=== PATIENT | female | born 1960 | race Caucasian/White ===

== ENCOUNTER → 2017-03-22 | Outpatient (CLI) | payer OTHER ==
[2017-03-22 10:29] LABS: Basophils # (A) 0.1 k/uL (0-0.2); Basophils % (A) 1 %; CH 26.3; CHCM 34.4; Eosinophils # (A) 0.5 k/uL (0-0.7); Eosinophils % (A) 5 %; HCT 36.3 % (34.0-46.0); HDW 2.69; HGB 12.5 gm/dL (11.4-16.0); Luc # (Auto) 0.19; Luc % (Auto) 2; Lymphocytes # (A) 1.8 k/uL (1.0-4.8); Lymphocytes % (A) 18 %; MCH 26.5 pg (25.0-35.0); MCHC 34.5 g/dL (31.0-37.0); MCV 76.8 fL (80.0-100.0); Mean Platelet Volume 6.4; Monocytes # (A) 0.3 k/uL (0-1.0); Monocytes % (A) 3 %; Neutrophils # (A) 7.3 k/uL (1.3-7.7); Neutrophils % (A) 72 %; RBC 4.73 m/uL (3.80-5.40); RDW 13.7 % (11.5-15.5); WBC 10.1 k/uL (3.8-10.6)
[2017-03-22 10:42] LABS: ALT 32 U/L (9-52); AST 19 U/L (14-36); Alkaline Phosphatase 49 U/L (38-126); Anion Gap 11 mmol/L; Blood Urea Nitrogen 16 mg/dL (7-17); Calcium 9.5 mg/dL (8.4-10.2); Carbon Dioxide 23 mmol/L (22-30); Chloride 106 mmol/L (98-107); Cholesterol 150 mg/dL (<200); Glucose 78 mg/dL (74-99); HDL Cholesterol 49 mg/dL (40-60); Non-African American GFR(MDRD) >60 (>60 ml/min/1.73 sqM); Potassium 4.5 mmol/L (3.5-5.1); Sodium 140 mmol/L (137-145); Total Bilirubin 0.3 mg/dL (0.2-1.3); Total Protein 6.7 g/dL (6.3-8.2); Triglycerides 132 mg/dL (<150)
--- NOTE | 2017-03-22 11:59 | ECHOF ---
Referral Reason:R01.1 Cardiac Murmur MEASUREMENTS -------- HEIGHT: 160.0 cm WEIGHT: 73.9 kg BP: IVSd: 0.9 cm (0.6 - 1.1) LVIDd: 3.4 cm (3.9 - 5.3) LVPWd: 1.1 cm (0.6 - 1.1) IVSs: 1.5 cm LVIDs: 1.9 cm LVPWs: 1.2 cm LA Diam: 3.2 cm (2.7 - 3.8) LAESV Index (A-L): 20.67 ml/m Ao Diam: 2.6 cm (2.0 - 3.7) AV Cusp: 1.7 cm (1.5 - 2.6) LA Diam: 3.9 cm (2.7 - 3.8) MV EXCURSION: 20.651 mm (> 18.000) MV EF SLOPE: 85 mm/s (70 - 150) EPSS: 0.4 cm MV E Jay: 0.83 m/s MV DecT: 258 ms MV A Jay: 0.97 m/s MV E/A Ratio: 0.86 RAP: 5.00 mmHg RVSP: 27.35 mmHg FINDINGS -------- Sinus rhythm. This was a technically good study. The left ventricular size is normal. Left ventricular wall thickness is normal. Overall left ventricular systolic function is normal with, an EF between 55 - 60 %. The right ventricle is normal in size. Normal LA size by volume 22+/-6 ml/m2. The right atrial size is normal. The aortic valve is trileaflet, and appears structurally normal. No aortic stenosis or regurgitation. The mitral valve is normal. Mild mitral regurgitation is present. Mild tricuspid regurgitation present. There is no evidence of pulmonary hypertension. The right ventricular systolic pressure, as measured by Doppler, is 27.35mmHg. There is no pulmonic regurgitation present. The aortic root size is normal. There is no pericardial effusion. CONCLUSIONS -------- 1. This was a technically good study. 2. There is no pericardial effusion. 3. Overall left ventricular systolic function is normal with, an EF between 55 - 60 %. 4. Normal LA size by volume 22+/-6 ml/m2. 5. The aortic valve is trileaflet, and appears structurally normal. No aortic stenosis or regurgitation. 6. Mild mitral regurgitation is present. 7. Mild tricuspid regurgitation present. 8. There is no evidence of pulmonary hypertension. 9. There is no pulmonic regurgitation present. 10. The aortic root size is normal. [employer] GOLF PROFESSIONAL: Lizbet Gil RDCS
--- NOTE | 2017-03-23 13:18 | MM ---
Reason for exam: screening (asymptomatic). Last mammogram was performed 1 year and 6 months ago. History: Benign excisional biopsy of the right breast, 1979. Taking estrogen for 1 year. Physical Findings: A clinical breast exam by your physician is recommended on an annual basis and results should be correlated with mammographic findings. MG Screening Mammo w CAD Bilateral CC and MLO view(s) were taken. Prior study comparison: October 06, 2015, bilateral MG screening mammo w CAD. October 03, 2014, bilateral MG screening mammo w CAD. December 04, 2012, bilateral digital screening mammo w/CAD. The breast tissue is heterogeneously dense. This may lower the sensitivity of mammography. No significant changes when compared with prior studies. ASSESSMENT: Negative, BI-RAD 1 RECOMMENDATION: Routine screening mammogram of both breasts in 1 year.
== END | disposition home or self-care (01) ==
LOC: RADMAMWWP 09:54
PROVIDERS: ATTEND Family Medicine
DX: Z12.31 Encounter for screening mammogram for malignant neoplasm of breast (principal); I34.0 Nonrheumatic mitral (valve) insufficiency; R01.1 Cardiac murmur, unspecified; E03.9 Hypothyroidism, unspecified; Z01.419 Encounter for gynecological examination (general) (routine) without abnormal findings; Z13.0 Encounter for screening for diseases of the blood and blood-forming organs and certain disorders involving the immune mechanism; Z13.1 Encounter for screening for diabetes mellitus; Z13.220 Encounter for screening for lipoid disorders
CPT/HCPCS: 93306; 80061; 80053; 84443; 85025; G0202

== ENCOUNTER → 2017-11-08 | Outpatient (CLI) | payer OTHER ==
--- NOTE | 2017-11-08 13:41 | MR ---
EXAMINATION TYPE: MR knee LT wo con DATE OF EXAM: 11/08/2017 COMPARISON: NONE HISTORY: Left knee pain TECHNIQUE: Multiplanar, multisequence imaging of the left knee is performed without IV contrast. FINDINGS: MEDIAL MENISCUS: Very minimal increased signals within the posterior horn medial meniscus along its s uperior aspect. Communication with the articular surface is not identified. Some minimal internal liset angement may be present. LATERAL MENISCUS: There is some increased signal within the anterior portion of the posterior horn la teral meniscus. No communication with the articular surface is evident. Some internal derangement may be present. CRUCIATE LIGAMENTS: The anterior and posterior cruciate ligaments are intact and unremarkable. COLLATERAL LIGAMENTS: The medial collateral ligament and lateral collateral ligament complex are inta ct and unremarkable. EXTENSOR MECHANISM: Visualized quadriceps and patellar tendons are intact. EFFUSION: No significant suprapatellar joint effusion. There is a loculated fluid collection lateral to the lateral knee joint space. POPLITEAL CYST: No popliteal/sanders cyst. TRICOMPARTMENT SPACES: Preserved CARTILAGE: Preserved. BONE MARROW SIGNAL: No focal abnormal marrow signal is appreciated. OTHER: No additional significant abnormality is appreciated. IMPRESSION: 1. Fluid collection along lateral distal metaphyseal femur could be some bursal fluid or loculated j oint effusion. 2. Minimal internal derangement posterior horns medial and lateral meniscus, greater on the lateral s gab. No communication with the articular surface is evident. 3. Remaining portions of the left knee appear unremarkable.
== END | disposition home or self-care (01) ==
LOC: RADMRIMAIN 09:08
PROVIDERS: ATTEND Family Medicine
DX: M23.352 Other meniscus derangements, posterior horn of lateral meniscus, left knee (principal); M23.322 Other meniscus derangements, posterior horn of medial meniscus, left knee

== ENCOUNTER → 2018-01-06 | Outpatient (CLI) | payer OTHER ==
--- NOTE | 2018-01-06 10:17 | US ---
EXAMINATION TYPE: US transvaginal DATE OF EXAM: 01/06/2018 COMPARISON: NONE CLINICAL HISTORY: N84.0 ENDOMETRIAL POLYP, N83.291 OVARIAN CYST. postmenopausal spotting TECHNIQUE: Transvaginal (TV). EXAM MEASUREMENTS: Uterus: 8.4 x 6.4 x 5.1cm cm Endometrial Stripe: 0.3 cm Right Ovary: 2.8 x 1.4 x 1.4 cm Left Ovary: 2.1 x 1.5 x 2.0 cm 1. Uterus: Anteverted somewhat heterogeneous echopattern, few Nabothian cysts 2. Endometrium: wnl 3. Right Ovary: wnl 4. Left Ovary: wnl 5. Bilateral Adnexa: wnl 6. Posterior cul-de-sac: no free fluid seen IMPRESSION: No suspicious thickening of endometrium seen.
== END | disposition home or self-care (01) ==
LOC: RADUSWWP 09:39
PROVIDERS: ATTEND Internal Medicine Endocrinology, Diabetes & Metabolism
DX: N84.0 Polyp of corpus uteri (principal); N83.291 Other ovarian cyst, right side
CPT/HCPCS: 76830

== ENCOUNTER → 2018-03-21 | Outpatient (CLI) | payer OTHER ==
[2018-03-14 10:13] VITALS: BMI 29.2
[2018-03-21 14:45] VITALS: BP 140/70; PULSE 68; RESP 16
--- NOTE | 2018-03-21 14:58 | P.PAINCN ---
History of Present Illness - Reason for Consult Consult date: 03/21/18 - History of Present Illness This is 58 years old female with a chronic history of severe low back pain with radiation to the left buttock area, she denies any initiating event she reported that the pain started 3 years ago, and increase in intensity over time she tried physical therapy and chiropractics without any benefit, and she tried NSAIDs without any benefit, she continued to have severe left-sided low back pain, the pain increases with any activity, and interfering with her quality of life, she denies any change in the bowel movement or urination, she denies any motor or sensory deficit, and there is no fever or night sweats Past Medical History Past Medical History: Thyroid Disorder Additional Past Medical History / Comment(s): MINOR ARRYTHMIA History of Any Multi-Drug Resistant Organisms: None Reported Past Surgical History: Orthopedic Surgery Additional Past Surgical History / Comment(s): COLONOSCOPY. LT KNEE SCOPE X 2 Past Anesthesia/Blood Transfusion Reactions: No Reported Reaction Past Psychological History: No Psychological Hx Reported Smoking Status: Never smoker Past Alcohol Use History: Occasional Past Drug Use History: None Reported - Past Family History Father Family Medical History: Deep Vein Thrombosis (DVT) Medications and Allergies Home Medications Medication Instructions Recorded Confirmed Type Levothyroxine Sodium [Synthroid] 50 mcg PO DAILY 05/10/14 03/21/18 History Spironolactone 100 mg PO DAILY 02/14/18 03/21/18 History Aspirin 325 mg PO DAILY 03/14/18 03/21/18 History Allergies Allergy/AdvReac Type Severity Reaction Status Date / Time No Known Allergies Allergy Verified 03/21/18 14:38 Physical Exam Vitals: Vital Signs Pulse Resp BP Pulse Ox 03/21/18 14:43 68 16 140/70 98 Physical Examinations : 1-Constitutiona : Cooperative , not in acute distress . 2-HEENT : nech ; supple , no Lymphadenopathy , normal thyroid size . eyes : no ptosis , no icterus , no photophobia . ENT : normal of hearing , normal oropharynx , no Thrush . 3- Respiratory : Chest clear to auscultations Bilaterally , no wheezing , no Rhonchi . 4- Cardiovascular : regular rate and rhythem , S1 , S2 , no S3 , no S4. 5- Gastrointestinal : abdomen soft no tenderness , bowel sounds , no organomegally . 6- Genitourinary : Defferred . 7- neurologic : Cranial nerve II to XII intact , no focal neurological deffecit . 8-psychatric : alert , oriented X 3 , appropriate affect , intact judgment and insight . 9-Lymphatic : no Lymphadenopathy . 10- musculoskeltal : , Lumber spine = normal moter stegnth lower extremities ,thigh and legs .5/5 deep tendon reflexes : normal Knee Jerk , normal ankle Jerk . lumber facet Loading Test positive on the left side and negative on the right side strait leg raising test negative bilaterally Fabere test negative bilaterally Results Comments: MRI of the lumbar spine done 01/03/2018 showed patient had L3 4 right-sided foraminal disc protrusion, and there is a right-sided Facet joint hypertrophy at L5-S1 Assessment and Plan Plan: Assessment and plan= chronic severe low back pain mostly secondary to lumbar spondylosis with lumbar facet arthropathy, The MRI showed patient had right-sided foraminal disc protrusion at L3 4 and L4-L5 , but this MRI finding does not match her clinical symptoms, she reported that she never had pain on the right side, and she report: Her pain is on the low back area on the left side For this reason most of the pain is coming from the facetogenic component, he shouldn't will be scheduled to have diagnostic medial branch block on the left side , at L3-4 /L4 5/ L5-S1 x2 benefits positive then we will do the radiofrequency ablation Time with Patient: Greater than 30 PQRS Measure Charge Sheet Measure #130: Documentation of Current Meds in Medical Chart: Patient's medications documented in chart Measure #226: Tobacco Use: Screen & Cessation Intervention: Pt not a tobacco user Measure #111: Pneumonia Vaccination: Pneumococcal vaccine NOT administered or previously given Measure #47: Advance Care Plan: Advance care planning discussed & documented, plan or surrogate given Measure #412: Opioid Treatment Agreement: No documentation of signed opioid treatment agreement Measure #408: Opioid Therapy Follow-up Evaluation: Patient had NO f/u eval minimum every 3 months during opioid therapy Measure #317: Preventitive Care & Scrn High Bld Press & F/U: Normal blood pressure, f/u not required Measure #128: Body Mass Index (BMI) Screening & Follow-up: BMI documented ABOVE normal parameters - f/u documented Measure #131: Pain Assessment & Follow-up: Pain positive & plan documented, Follow-up scheduled Measure #431: Unhealthy Alcohol Use Preventative Care & Scrn: Patient not identified as an unhealthy alcohol user PQRS Narrative: Smoking Status Never smoker Do You Want the Pneumonia No Vaccine AT THIS TIME? Blood Pressure 140/70 Pain Intensity [Left Buttock] 0 Scale Used Numeric (1 - 10) Hx Alcohol Use (MH) No Home Medications: Ambulatory Orders Levothyroxine Sodium [Synthroid] 50 mcg PO DAILY 05/10/14 Spironolactone 100 mg PO DAILY 02/14/18 Aspirin 325 mg PO DAILY 03/14/18
== END | disposition home or self-care (01) ==
LOC: PNWHC3 13:28
PROVIDERS: ATTEND Specialist
DX: G89.29 Other chronic pain (principal); M51.26 Other intervertebral disc displacement, lumbar region; M47.816 Spondylosis without myelopathy or radiculopathy, lumbar region; M46.86 Other specified inflammatory spondylopathies, lumbar region; Z98.890 Other specified postprocedural states; Z79.1 Long term (current) use of non-steroidal anti-inflammatories (NSAID); E07.9 Disorder of thyroid, unspecified; Z79.82 Long term (current) use of aspirin; Z79.899 Other long term (current) drug therapy
CPT/HCPCS: 99201

== ENCOUNTER → 2018-04-14 | Outpatient (CLI) | payer OTHER ==
--- NOTE | 2018-04-17 08:30 | MM ---
Reason for exam: screening (asymptomatic). Last mammogram was performed 1 year and 1 month ago. History: Patient is postmenopausal. Benign excisional biopsy of the right breast, 1979. Taking estrogen for 1 year. Physical Findings: A clinical breast exam by your physician is recommended on an annual basis and results should be correlated with mammographic findings. MG 3D Screening Mammo W/Cad Bilateral CC and MLO view(s) were taken. Technologist: Renetta Nagel RT (R)(M) Prior study comparison: March 22, 2017, bilateral MG screening mammo w CAD. October 06, 2015, bilateral MG screening mammo w CAD. The breast tissue is extremely dense which could obscure a lesion on mammography. Benign appearing bilateral calcifications. No suspicious abnormality. No significant changes when compared with prior studies. ASSESSMENT: Benign, BI-RAD 2 RECOMMENDATION: Routine screening mammogram of both breasts in 1 year.
== END | disposition home or self-care (01) ==
LOC: RADMAMWWP 09:32
PROVIDERS: ATTEND Family Medicine
DX: Z12.31 Encounter for screening mammogram for malignant neoplasm of breast (principal)
CPT/HCPCS: 77063; 77067

== ENCOUNTER 2018-04-25 09:01 | Day surgery (SDC) | payer OTHER ==
[2018-04-03 14:22] VITALS: BMI 29.2
[~2018-04-25 09:01] MED LIST: LACTATED RINGERS 1,000 ML IV SCH
[2018-04-25 09:46] VITALS: RESP 16; TEMP 97.9
[2018-04-25] MEDS ORDERED: LIDOCAINE 1% 20 ML VIAL (10MG/ML) FOR IV START INTRADERMA ONE (09:51)
--- NOTE | 2018-04-25 10:41 | P.PCN ---
Date of Procedure: 04/25/18 Procedure(s) Performed: PREOPERATIVE DIAGNOSIS : 1- Lumbar spondylosis with Facet Arthropathy without myelopathy . 2- Lumber degenerative disc disease POSTOPERATIVE DIAGNOSIS: 1- Lumbar spondylosis with Facet Arthropathy without myelopathy . 2- Lumber degenerative disc disease PROCEDURE: Diagnostic Left L3 -4 , L4 -5 , and L5-S1 medial branch block under fluoroscopy ANESTHESIA: Local with 1% lidocaine 6 ml , moderate sedation with intravenous Versed 2 mg and Fentanyl 50 mcg. EBL: Minimal COMPLICATION: None. IV FLUIDS: 100 mL of normal saline. PROCEDURE INDICATION: Chronic low back pain secondary to Facet arthropathy unresponsive to conservative treatment. PROCEDURE DESCRIPTION: the patient was seen and identified in the preop holding area , risks and benefits and possible complications of the procedure and alternative were discussed with the patient, and the patient agreed to proceed with the procedure and signed the consent IV was started and vital signs monitored during the procedure and fluoroscopy was used to maximize the benefit and accuracy of the needle placement, and sedation was given to decrease patient anxiety, patient was taken to the procedure room and placed in prone position vital signs monitored in the back prepped with chlorhexidine X3 then under strict sterile technique using a right oblique fluoroscopy ,the junction of the transverse process and the superior articulating process of the Left L3- 4 , L4- 5, and L5-S1 vertebra which corresponding to the fluoroscopy image of the eye of the Donald dog on the block side for the medial branches and subsequently , after local infiltration of skin and subcu tissuies with lidocaine 1% one mL at each level ,then 22- gauge Quincke-type needles , 3 needle was used , each one of them placed at the junction of the base of the transverse process and the superior articular process at the appropriate level, and the needle was advanced until the periosteum contacted, needle placement confirmed with AP oblique and lateral view and after appropriate needle placement confirmed, and after negative aspiration for heme and CSF and there was no paresthesia 1-1/2 mL of Marcaine 0.5% mixed with 40 mg Kenalog , then half mL injected at each level after negative aspiration the needle subsequently removed. At the end of the procedure and the needles removed and a bandage applied after the skin was cleaned the cleaning solution patient taken to recovery room in stable condition and monitors in the recovery room for 20-30 minutes and discharged home in stable condition after discharge criteria met and patient will follow up with the pain clinic in 2-4 weeks
[2018-04-25] MEDS ORDERED: IV FLUID CONTINUATION 1,000 ML IV ONE (10:46)
--- NOTE | 2018-04-25 10:51 | FL ---
EXAMINATION TYPE: FL guided pain mgmt statistic DATE OF EXAM: 04/25/2018 HISTORY: Flouroscopy time 5 seconds of fluoroscopy provided. IMPRESSION: 1. Fluoroscopy time.
[2018-04-25 11:06] VITALS: BP 115/78; PULSE 72
== END 2018-04-25 11:16 | disposition home or self-care (01) ==
LOC: ORPAIN 09:01
PROVIDERS: ATTEND Specialist
DX: G89.29 Other chronic pain (principal); M47.816 Spondylosis without myelopathy or radiculopathy, lumbar region; M51.36 Other intervertebral disc degeneration, lumbar region
CPT/HCPCS: 64493; 64494; 64495; J2250; J3301; J3010; 99152

== ENCOUNTER 2018-05-11 08:51 | Day surgery (SDC) | payer OTHER ==
[2018-05-09 10:15] VITALS: BMI 29.2
[2018-05-11 09:10] VITALS: RESP 16; TEMP 97.6
[2018-05-11] MEDS ORDERED: LIDOCAINE 1% 20 ML VIAL (10MG/ML) FOR IV START INTRADERMA ONE (09:10)
--- NOTE | 2018-05-11 10:15 | P.PCN ---
Date of Procedure: 05/11/18 Procedure(s) Performed: PREOPERATIVE DIAGNOSIS : 1- Lumbar spondylosis with Facet Arthropathy without myelopathy . POSTOPERATIVE DIAGNOSIS: 1- Lumbar spondylosis with Facet Arthropathy without myelopathy . PROCEDURE: Diagnostic Left L3 -4 , L4 -5 , and L5-S1 medial branch block under fluoroscopy ( # 2 ) ANESTHESIA: Local with Ropivacain 0.5 % 6 ml , moderate sedation with intravenous Versed 2 mg and Fentanyl 50 mcg. EBL: Minimal COMPLICATION: None. IV FLUIDS: 100 mL of normal saline. PROCEDURE INDICATION: Chronic low back pain secondary to Facet arthropathy unresponsive to conservative treatment. PROCEDURE DESCRIPTION: the patient was seen and identified in the preop holding area , risks and benefits and possible complications of the procedure and alternative were discussed with the patient, and the patient agreed to proceed with the procedure and signed the consent IV was started and vital signs monitored during the procedure and fluoroscopy was used to maximize the benefit and accuracy of the needle placement, and sedation was given to decrease patient anxiety, patient was taken to the procedure room and placed in prone position vital signs monitored in the back prepped with chlorhexidine X3 then under strict sterile technique using a Left oblique fluoroscopy ,the junction of the transverse process and the superior articulating process of the Left L3- 4 , L4- 5, and L5-S1 vertebra which corresponding to the fluoroscopy image of the eye of the Donald dog on the block side for the medial branches and subsequently , after local infiltration of skin and subcu tissuies with Ropivacaine 0.5 % , one mL at each level , then 22-gauge Quincke-type needles , 3 needle was used , each one of them placed at the junction of the base of the transverse process and the superior articular process at the appropriate level, and the needle was advanced until the periosteum contacted, needle placement confirmed with AP oblique and lateral view and after appropriate needle placement confirmed, and after negative aspiration for heme and CSF and there was no paresthesia 1-1/2 mL of Ropivacaine 0.5% mixed with 40 mg Kenalog , then half mL injected at each level after negative aspiration the needle subsequently removed intact . At the end of the procedure and the needles removed and a bandage applied after the skin was cleaned the cleaning solution patient taken to recovery room in stable condition and monitors in the recovery room for 20-30 minutes and discharged home in stable condition after discharge criteria met and patient will follow up with the pain clinic in 2-4 weeks
[2018-05-11] MEDS ORDERED: IV FLUID CONTINUATION 1,000 ML IV ONE ×2 (10:23)
--- NOTE | 2018-05-11 10:56 | FL ---
EXAMINATION TYPE: FL guided pain mgmt statistic DATE OF EXAM: 05/11/2018 HISTORY: Flouroscopy time 3 seconds of fluoroscopy provided. IMPRESSION: 1. Fluoroscopy time.
[2018-05-11 10:59] VITALS: BP 117/76; PULSE 70
== END 2018-05-11 11:04 | disposition home or self-care (01) ==
LOC: ORPAIN 08:51
PROVIDERS: ATTEND Specialist
DX: M47.816 Spondylosis without myelopathy or radiculopathy, lumbar region (principal); G89.29 Other chronic pain
CPT/HCPCS: 64493; 64494; 64495; J2250; J3301; J3010; 99152

== ENCOUNTER → 2018-07-20 | Outpatient (CLI) | payer OTHER ==
[2018-07-20 14:46] VITALS: BP 124/80; PULSE 71; RESP 16
--- NOTE | 2018-07-20 14:56 | P.PN ---
Progress Note - Text Progress Note Date: 07/20/18 This is a follow visit for this 58 years old female with a chronic history of severe low back pain on the left side, she was diagnosed with lumbar spondylosis with lumbar facet arthropathy without myelopathy , April 2018 we did diagnostic medial branch block left side L3-4 /L4-5/L5-S1 , she reported that her pain improved significantly after the block currently her pain level 0- 1/10 , she denies any motor or sensory deficit she denies any fever or night sweats and she denies any change in bowel movement or urination, and in the view the patient had no pain most of the time since we did today lasted medial branch block , patient will continue to use [id number] NSAID if needed , and she will follow up with the pain clinic when necessary , in the future sure if she had pain then she would be good candidate for radiofrequency ablation of the medial branch lumbar area left side at L3-4/L4-L5/L5-S1
== END | disposition home or self-care (01) ==
LOC: PNWHC3 14:06
PROVIDERS: ATTEND Specialist
DX: G89.29 Other chronic pain (principal); M47.816 Spondylosis without myelopathy or radiculopathy, lumbar region; M46.96 Unspecified inflammatory spondylopathy, lumbar region
CPT/HCPCS: 99211

== ENCOUNTER → 2020-03-11 | Outpatient (CLI) | payer BC ==
--- NOTE | 2020-03-12 11:03 | MM ---
Reason for exam: screening (asymptomatic). Last mammogram was performed 1 year and 11 months ago. History: Patient is postmenopausal. Benign excisional biopsy of the right breast, 1979. Taking hormonal contraceptives. Taking estrogen for 1 year. Physical Findings: A clinical breast exam by your physician is recommended on an annual basis and results should be correlated with mammographic findings. MG 3D Screening Mammo W/Cad Bilateral CC and MLO view(s) were taken. Prior study comparison: April 14, 2018, bilateral MG 3d screening mammo w/cad. March 22, 2017, bilateral MG screening mammo w CAD. The breast tissue is heterogeneously dense. This may lower the sensitivity of mammography. No significant changes when compared with prior studies. ASSESSMENT: Benign, BI-RAD 2 RECOMMENDATION: Routine screening mammogram of both breasts in 1 year.
== END | disposition home or self-care (01) ==
LOC: RADMAMWWP 14:44
PROVIDERS: ATTEND Family Medicine
DX: Z12.31 Encounter for screening mammogram for malignant neoplasm of breast (principal)
CPT/HCPCS: 77063; 77067

== ENCOUNTER 2020-03-27 09:25 | Day surgery (SDC) | payer BC ==
[2020-03-25 15:11] VITALS: BMI 29.2
[2020-03-27 09:43] VITALS: TEMP 98.4
[2020-03-27] MEDS ORDERED: LIDOCAINE 1% (10MG/ML) FOR IV START INTRADERMA ONE (09:44)
[2020-03-27] MEDS ORDERED: LACTATED RINGERS 1,000 ML IV ONE (09:44)
[2020-03-27] MEDS ORDERED: PROPOFOL 10 MG/ML 20 ML VIAL IV ONE (10:53)
--- NOTE | 2020-03-27 10:54 | P.GSHP ---
History of Present Illness H&P Date: 03/27/20 Chief Complaint: Screening colonoscopy This a 6-year-old female who presents today for screening colonoscopy. Patient denies any significant GI complaints. Past Medical History Past Medical History: Thyroid Disorder Additional Past Medical History / Comment(s): HEART MURMUR History of Any Multi-Drug Resistant Organisms: None Reported Past Surgical History: Orthopedic Surgery Additional Past Surgical History / Comment(s): COLONOSCOPY. LT KNEE SCOPE X 2 Past Anesthesia/Blood Transfusion Reactions: No Reported Reaction Past Psychological History: No Psychological Hx Reported Smoking Status: Never smoker Past Alcohol Use History: Occasional Past Drug Use History: None Reported - Past Family History Father Family Medical History: Deep Vein Thrombosis (DVT) Mother Family Medical History: Cancer Additional Family Medical History / Comment(s): SKIN CANCER Medications and Allergies Home Medications Medication Instructions Recorded Confirmed Type Levothyroxine Sodium [Synthroid] 50 mcg PO QAM 05/10/14 03/25/20 History Aspirin 325 mg PO HS 03/14/18 03/25/20 History Biotin (Unknown Dose) 1 tab PO DAILY 03/25/20 History Estrogens, Conjugated [Premarin] 1.25 mg PO DAILY 03/25/20 03/25/20 History Spironolactone [Aldactone] 100 mg PO BID 03/25/20 03/25/20 History Allergies Allergy/AdvReac Type Severity Reaction Status Date / Time No Known Allergies Allergy Verified 03/25/20 14:52 Surgical - Exam Vital Signs Temp Pulse Resp BP Pulse Ox 98.4 F 82 18 166/89 97 03/27/20 09:42 03/27/20 09:42 03/27/20 09:42 03/27/20 09:42 03/27/20 09:42 - General well developed, well nourished, no distress - Eyes PERRL - ENT normal pinna - Neck no masses - Respiratory normal expansion - Cardiovascular Rhythm: regular - Abdomen Abdomen: soft, non tender Assessment and Plan Assessment: We'll perform screening colonoscopy
--- NOTE | 2020-03-27 11:12 | P.OP ---
Date of Procedure: 03/27/20 Preoperative Diagnosis: Screening colonoscopy Postoperative Diagnosis: Normal colon Procedure(s) Performed: Colonoscopy Anesthesia: MAC Surgeon: Wil Tovar Pathology: none sent Condition: stable Disposition: PACU Description of Procedure: Nor PROCEDURE: The patient was placed on the endoscopy table in the lateral position. Digital rectal examination was performed which revealed no abnormalities. s. Flexible colonoscope was then placed in the patient's anus and passed throughout the entire colon. The ileocecal valve was visualized. The cecum, ascending, transverse, descending and sigmoid colon were normal. The rectum was normal as well. There were no masses, polyps or diverticula noted in the entire colon. SUMMARY OF FINDINGS: Normal colonoscopy.
[2020-03-27 11:23] VITALS: RESP 16
[2020-03-27 11:36] VITALS: BP 108/64; PULSE 71
== END 2020-03-27 11:38 | disposition home or self-care (01) ==
LOC: ORWHC2ENDO 09:25
PROVIDERS: ATTEND Surgery
DX: Z12.11 Encounter for screening for malignant neoplasm of colon (principal); E07.9 Disorder of thyroid, unspecified; Z79.82 Long term (current) use of aspirin; Z79.890 Hormone replacement therapy; Z79.899 Other long term (current) drug therapy; Z98.890 Other specified postprocedural states; Z82.49 Family history of ischemic heart disease and other diseases of the circulatory system; Z80.8 Family history of malignant neoplasm of other organs or systems
CPT/HCPCS: J2704; G0121

== ENCOUNTER → 2021-03-05 | Outpatient (CLI) | payer OTHER ==
--- NOTE | 2021-03-06 08:42 | EST ---
- Stress Test Note Stress Test Results/Findings: Exam Performed: stress echo exercise Exam Date: 03/05/21 Reason for Exam: Murmur and Palpitations Height: 5 ft 3 in Weight: 70.307 kg Protocol: Keanu Stage: 4 Duration of Exercise: 10:00 Resting Heart Rate: 71 Resting Blood Pressure: 148/91 Maximum Achieved Heart Rate: 160 Maximum Achieved Blood Pressure: 200/68 85% PMHR: 135 100% PMHR: 159 METS: 11.5 Technologist Comment: Stress Test Results/Findings: Patient underwent exercise stress echo with a Keanu protocol treadmill stress test. Patient exercised into Stage 4 for a total of 10 minutes reaching a total of 11.5 METS. Patient's maximum heart rate was 160 which represented 100 % age- predicted maximum heart rate. Stress EKG portion: At baseline patient's EKG showed normal sinus rhythm, normal axis, no significant ST or T-wave abnormalities. At peak exercise, EKG showed no significant changes from baseline.. Stress echo portion: 2-D echocardiogram was performed in the parasternal long, personal short, apical 2 and apical four-chamber views at rest, peak exercise and in recovery. At baseline, echocardiogram showed left ventricular ejection fraction 60% without wall motion abnormalities. With peak exercise, echocardiogram shows improvement in left ventricular ejection fraction, increase contractility, decrease in left ventricular dimension without wall motion abnormalities consistent with a normal response to exercise. Conclusions: 1. Normal EKG and echo response to exercise without evidence of inducible ischemia. 2. Excellent exercise capacity. 3. Normal ejection fraction 60% MTDD
== END | disposition home or self-care (01) ==
LOC: RADNMMAIN 09:14
PROVIDERS: ATTEND Family Medicine
DX: R01.1 Cardiac murmur, unspecified (principal); R00.2 Palpitations
CPT/HCPCS: 93351

== ENCOUNTER → 2021-03-16 | Outpatient (CLI) | payer OTHER | END | disposition home or self-care (01) | CPT/HCPCS: 76830 ==

== ENCOUNTER → 2021-03-17 | Outpatient (CLI) | payer OTHER ==
--- NOTE | 2021-03-20 09:03 | BD ---
EXAMINATION TYPE: Axial Bone Density DATE OF EXAM: 03/17/2021 COMPARISON: NONE CLINICAL HISTORY: 61 YR OLD FEMALE.....ICD-10 CODE: Z78.0, N95.1 POST MENOPAUSAL Height: 62 Weight: 167 FRAX RISK QUESTIONS: NOTHING ADDITIONAL TO ADD HERE RISK FACTORS HISTORY OF: Postmenopausal woman: YES, AT AGE 52 Take estrogen and/or progesterone medications: YES, FOR ABOUT 8 YRS Hyperparathyroidism: NO Adrenal Insufficiency: NO MEDICATIONS: Thyroid Medications: YES, FOR ABOUT 15+ YRS, SYNTHROID Additional Medications: NOTHING TO NOTE HERE Additional History: NOTHING ADDITIONAL TO ADD EXAM MEASUREMENTS: Bone mineral densitometry was performed using the [employer]. Bone mineral density as measured about the Lumbar spine is: ----- L1-L4(G/cm2): 1.477 T Score Values are as follows: ----- L1: 1.7 ----- L2: 2.7 ----- L3: 2.8 ----- L4: 2.5 ----- L1-L4: 2.5 Bone mineral density FIRST DEXA SCAN, BASELINE STUDY Bone mineral density about the R hip (g/cm2): 1.071 Bone mineral density about the L hip (g/cm2): 1.149 T Score values are as follows: -----R Neck: 0.3 -----L Neck: 0.0 -----R Total: 0.5 -----L Total: 1.1 Bone mineral density BASELINE STUDY FRAX%s: THERE IS A 6.0% CHANCE FOR A MAJOR OSTEOPOROTIC FX AND A 0.1% FOR HIP......PROBABILITY FOR FX IN 10 YRS TIME IMPRESSION: Normal (Values between +1 and -1 indicate normal bone mass). Consider repeating this study in 5 year s or sooner if there is some new clinical indication. NOTE: T-SCORE=SD OF THE YOUNG ADULT MEAN.
--- NOTE | 2021-03-23 12:03 | MM ---
Reason for exam: screening (asymptomatic). Last mammogram was performed 1 year ago. History: Patient is postmenopausal. Benign excisional biopsy of the right breast, 1979. Taking hormonal contraceptives. Taking estrogen for 1 year. Physical Findings: A clinical breast exam by your physician is recommended on an annual basis and results should be correlated with mammographic findings. MG 3D Screening Mammo W/Cad Bilateral CC and MLO view(s) were taken. Prior study comparison: March 11, 2020, bilateral MG 3d screening mammo w/cad. April 14, 2018, bilateral MG 3d screening mammo w/cad. The breast tissue is extremely dense which could obscure a lesion on mammography. No significant changes when compared with prior studies. ASSESSMENT: Benign, BI-RAD 2 RECOMMENDATION: Routine screening mammogram of both breasts in 1 year.
== END | disposition home or self-care (01) ==
LOC: RADMAMWWP 10:03
PROVIDERS: ATTEND Family Medicine
DX: Z12.31 Encounter for screening mammogram for malignant neoplasm of breast (principal); Z78.0 Asymptomatic menopausal state; Z79.818 Long term (current) use of other agents affecting estrogen receptors and estrogen levels
CPT/HCPCS: 77063; 77067; 77080

== ENCOUNTER → 2022-05-19 | Outpatient (CLI) | payer OTHER ==
--- NOTE | 2022-05-28 09:50 | MM ---
Reason for Exam: Screening (asymptomatic). Last mammogram was performed 1 year(s) and 2 month(s) ago. Patient History: Menarche at age 12. First Full-Term at age 21. Postmenopausal. Currently using Estrogen, for 1 year. Currently using Hormonal Contraceptives. 1980, Benign Excisional Biopsy on the right side. Risk Values: Lindsey 5 year model risk: 1.6%. NCI Lifetime model risk: 7.3%. Prior Study Comparison: 04/14/2018 Bilateral Screening Mammogram, [facility]. 03/11/2020 Bilateral Screening Mammogram, [facility]. 03/17/2021 Bilateral Screening Mammogram, [facility]. Tissue Density: The breast tissue is extremely dense which could obscure a lesion on mammography. Findings: Analyzed By CAD. There is no suspicious group of microcalcifications or new suspicious mass in either breast. Overall Assessment: Benign, BI-RAD 2 Management: Screening Mammogram of both breasts in 1 year. A clinical breast exam by your physician is recommended on an annual basis and results should be correlated with mammographic findings. Electronically signed and approved by: Kem Andino M.D. Radiologis
== END | disposition home or self-care (01) ==
LOC: RADMAMWWP 09:59
PROVIDERS: ATTEND Family Medicine
DX: Z12.31 Encounter for screening mammogram for malignant neoplasm of breast (principal); Z78.0 Asymptomatic menopausal state
CPT/HCPCS: 77063; 77067

== ENCOUNTER → 2024-02-03 | Outpatient (CLI) | payer OTHER ==
--- NOTE | 2024-02-07 09:35 | CT ---
EXAMINATION TYPE: CT abdomen pelvis w con CT DLP: 1297 mGycm, Automated exposure control for dose reduction was used. DATE OF EXAM: 02/03/2024 2:04 PM COMPARISON: None. CLINICAL INDICATION:Female, 64 years old with history of R10.9 ABD PAIN R14.0 ABDOMINAL DISTENSION (G ASEOUS; abd pain, bloating and gaseous TECHNIQUE: Axial CT of the abdomen and pelvis. Sagittal and coronal reformats were created on a [employer] workstation. Contrast used:100 mL of Isovue 300 with IV Contrast, (none if empty) Oral contrast used: with Oral Contrast (none if empty) FINDINGS: LOWER CHEST: Lung bases are free of infiltrate. A 4 mm nodule in the left lower lobe-- follow-up per Fleischner guidelines. [Please note Fleischner criteria no longer apply if the patient turns out to have cancer] Heart size within normal limits. Mildly prominent pericardial fat with a couple of nonenlarged nodes. ABDOMEN LIVER: Possible background steatosis. No evidence of mass. GALLBLADDER AND BILE DUCTS: Gallbladder appears mostly contracted without visible calcified gallstone s. The CBD is mildly prominent 8.6 mm, however not necessarily excessive for patient's age; could cor relate with LFTs PANCREAS: Unremarkable. SPLEEN: Unremarkable. ADRENAL GLANDS: Unremarkable. KIDNEYS AND URETERS: Kidneys enhance symmetrically without evidence of mass. There is fullness of the renal pelves bilaterally, likely physiologic without dilated ureters seen. No visible calculi. PELVIS BLADDER: Unremarkable REPRODUCTIVE: Uterus shows lack of definition of the endometrial stripe. Ovaries are not clearly deli neated, there is no adnexal mass suggested. ABDOMEN & PELVIS STOMACH AND BOWEL: Contrast traverses the stomach and small bowel loops without evidence of obstructi on or other discrete abnormality. There is no evidence of appendicitis. Moderate stool throughout the colon. Several diverticula are seen in the descending and sigmoid region, without clear evidence of diverticulitis. PERITONEUM/RETROPERITONEUM: No evidence of pneumoperitoneum or free fluid. VASCULATURE: Aorta and major branches are grossly unremarkable. No AAA. Portal veins are enhancing. Splenic vein is patent. SMV is patent. There seems to be a circumaortic left renal vein. LYMPH NODES: No enlarged nodes by CT size criteria. SOFT TISSUE/ABDOMINAL WALL: Unremarkable MUSCULOSKELETAL: No acute osseous abnormalities. Mild degenerative changes of the spine. IMPRESSION: 1. No evidence of an acute inflammatory or obstructive process to explain the patient's symptoms. 2. Abnormal appearance of the uterus for the patient's age. Neoplasm cannot be excluded. Ultrasound pelvis recommended. 3. Single, solid pulmonary nodule that is less than 6mm in size. According to the 2017 Fleischner cr iteria, if the patient is low risk, No routine follow-up recommended. If high risk, optional CT at 12 months recommended.
== END | disposition home or self-care (01) ==
LOC: RADCTMAIN 12:29
PROVIDERS: ATTEND Family Medicine
DX: R91.1 Solitary pulmonary nodule (principal); R10.9 Unspecified abdominal pain; R14.0 Abdominal distension (gaseous)
CPT/HCPCS: 74177; Q9967

== ENCOUNTER → 2024-08-08 | Outpatient (CLI) | payer BC ==
--- NOTE | 2024-08-13 11:32 | MM ---
Reason for Exam: Screening (asymptomatic). Last mammogram was performed 1 year(s) and 2 month(s) ago. Patient History: Menarche at age 12. First Full-Term at age 21. Postmenopausal. Patient used Estrogen for 1 year. Used Hormonal Contraceptives. 1979, Benign Excisional Biopsy on the right side. Risk Values: Lindsey 5 year model risk: 1.7%. NCI Lifetime model risk: 6.9%. Prior Study Comparison: 03/17/2021 Bilateral Screening Mammogram, [facility]. 05/19/2022 Bilateral MG 3D screening mammo w/cad, [facility]. 05/20/2023 Bilateral MG 3D screening mammo w/cad, [facility]. Tissue Density: The breasts are heterogeneously dense, which may obscure small masses. Findings: Analyzed By CAD. A focal asymmetry on either side for which further evaluation is recommended to exclude obscured masses. No suspicious microcalcification or other discrete abnormality is seen. Overall Assessment: Incomplete: need additional imaging evaluation, BI-RAD 0 Management: Special View Mammogram of both breasts. Diagnostic Breast Ultrasound of both breasts. [facility] will attempt to contact patient to return for supplemental views and ultrasound if indicated. [facility], , 08/13/2024 11:29 AM. Electronically signed and approved by: Elsie Denise M.D. Radiologist
== END | disposition home or self-care (01) ==
LOC: RADMAMWWP 11:13
PROVIDERS: ATTEND Family Medicine
DX: Z12.31 Encounter for screening mammogram for malignant neoplasm of breast (principal); Z78.0 Asymptomatic menopausal state; R92.333 Mammographic heterogeneous density, bilateral breasts
CPT/HCPCS: 77063; 77067

== ENCOUNTER → 2024-08-21 | Outpatient (CLI) | payer BC ==
--- NOTE | 2024-08-21 11:23 | MM ---
Reason for Exam: Additional evaluation requested from abnormal screening. Last screening mammogram was performed less than 1 month ago. Patient History: Menarche at age 12. First Full-Term at age 21. Postmenopausal. Patient used Estrogen for 1 year. Used Hormonal Contraceptives. 1979, Benign Excisional Biopsy on the right side. Risk Values: Lindsey 5 year model risk: 1.7%. NCI Lifetime model risk: 6.9%. Prior Study Comparison: 05/20/2023 Bilateral MG 3D screening mammo w/cad, [facility]. 08/08/2024 Bilateral MG 3D screening mammo w/cad, [facility]. Tissue Density: The breasts are heterogeneously dense, which may obscure small masses. Findings: Analyzed By CAD. The pattern is symmetrical. No suspicious underlying mass is evident. No suspicious groups of microcalcifications, spiculated or lobular masses, architectural distortion or other secondary signs of malignancy are mammographically apparent. Overall Assessment: Benign, BI-RAD 2 Management: Screening Mammogram of both breasts in 1 year. A negative mammogram report should not preclude additional follow up of suspicious palpable abnormalities. Patient should continue monthly self breast exam. A clinical breast exam by your physician is recommended on an annual basis and results should be correlated with mammographic findings. Note on Lindsey scores and lifetime risk: 1. A Lindsey score greater than 3% is considered moderate risk. If this is the case, consider specialist referral to assess eligibility for a risk reducing agent. 2. If overall lifetime risk for the development of breast cancer is 20% or higher, the patient may qualify for future screening with alternating mammogram and breast MRI. [facility], , 08/21/2024 10:35 AM . Electronically signed and approved by: Osmel Thomas D.O. Radiologis
== END | disposition home or self-care (01) ==
LOC: RADMAMWWP 10:01
PROVIDERS: ATTEND Family Medicine
DX: R92.8 Other abnormal and inconclusive findings on diagnostic imaging of breast (principal); R92.333 Mammographic heterogeneous density, bilateral breasts; Z78.0 Asymptomatic menopausal state; Z92.0 Personal history of contraception
CPT/HCPCS: 77062; 77066

== ENCOUNTER → 2024-09-10 | Outpatient (CLI) | payer BC ==
--- NOTE | 2024-09-10 23:19 | MR ---
EXAMINATION TYPE: MR knee LT wo con DATE OF EXAM: 09/10/2024 COMPARISON: MRI left knee 2018. Outside left knee x-ray July 26, 2024 HISTORY: Left knee pain medial side x3 months, Hx Lt knee scope lateral side TECHNIQUE: Multiplanar, multisequence images of the knee is performed without IV contrast. FINDINGS: MEDIAL MENISCUS: Triangular shaped increased signal posterior horn does not extend to articular surfa ce. New oblique signal anterior horn extends to superior articular surface. LATERAL MENISCUS: Horizontal Increased signal posterior horn redemonstrated and does not extend to ar ticular surface. New increased signal anterior horn extends to superior articular surface. CRUCIATE LIGAMENTS: The anterior and posterior cruciate ligaments are intact and unremarkable. COLLATERAL LIGAMENTS: The medial collateral ligament and lateral collateral ligament complex are inta ct. Edema deep to the MCL is not seen. EXTENSOR MECHANISM: Visualized quadriceps and patellar tendons are intact. EFFUSION: No significant suprapatellar joint effusion. POPLITEAL CYST: No popliteal/sanders cyst. TRICOMPARTMENT SPACES: Moderate to severe narrowing medial tibiofemoral and patellofemoral compartmen ts. [id number] spurring. CARTILAGE: Chondromalacia patella with cartilaginous loss along posterior patellar pole. BONE MARROW SIGNAL: Focus of diminished T1 and increased T2 signal slight anterior aspect medial tibi al plateau on current study measuring 11 mm transversely coronal image 16. OTHER: No additional significant abnormality is appreciated. IMPRESSION: 1. Moderate to borderline advanced tricompartment degenerative changes more prominent from 2018 MRI a s detailed above. 2. Persistent intrasubstance tear posterior horn medial meniscus. New full-thickness oblique tear ant erior horn medial meniscus. 3. Stable intrasubstance tear posterior horn lateral meniscus. New Full-thickness tear and torn late ral meniscus. 4. New 1.1 cm osteochondral defect medial tibial plateau. 5. New mild MCL sprain injury. [facility], , 09/10/2024 11:17 PM
== END | disposition home or self-care (01) ==
LOC: RADMRIMAIN 18:51
PROVIDERS: ATTEND Orthopaedic Surgery
DX: S83.242A Other tear of medial meniscus, current injury, left knee, initial encounter (principal); S83.282A Other tear of lateral meniscus, current injury, left knee, initial encounter; S83.412A Sprain of medial collateral ligament of left knee, initial encounter; Q89.8 Other specified congenital malformations; X58.XXXA Exposure to other specified factors, initial encounter

== ENCOUNTER → 2025-03-07 | Outpatient (CLI) | payer MEDICARE, BC ==
--- NOTE | 2025-03-07 15:26 | BD ---
EXAMINATION TYPE: Axial Bone Density DATE OF EXAM: 03/07/2025 CLINICAL HISTORY: 65 years old Female. ICD-10 CODE: Z13.820 MENOPAUSAL , Additional History: Height: 62 Weight: 175 FRAX RISK QUESTIONS: 3. Menopause before 45: no, 52 RISK FACTORS HISTORY OF: MEDICATIONS: Thyroid Medications: yes, synth. for about 20 yrs EXAM MEASUREMENTS: Bone mineral densitometry was performed using the [employer] System. Bone mineral density as measured about the Lumbar spine is: ----- L1-L4(G/cm2): 1.407 T Score Values are as follows: ----- L1: 1.6 ----- L2: 1.5 ----- L3: 2.0 ----- L4: 2.1 ----- L1-L4: 1.9 Z Score Values are as follows: ----- L1: 2.7 ----- L2: 2.6 ----- L3: 3.1 ----- L4: 3.2 ----- L1-L4: 3.0 Bone mineral density has: Decreased -4.7% since study of: 03.17.2021 Bone mineral density about the R hip (g/cm2): 1.069 Bone mineral density about the L hip (g/cm2): 1.147 T Score values are as follows: -----R Neck: -0.6 -----L Neck: -0.2 -----R Total: 0.5 -----L Total: 1.1 Z Score values are as follows: -----R Neck: 0.5 -----L Neck: 0.9 -----R Total: 1.3 -----L Total: 2.0 Bone mineral density has: Decreased -0.2% since study of: 03.17.2021 FRAX%s: The graph provided illustrates a 7.0% chance for a major osteoporotic fx and a 0.4% chance fo r the hips probability for fx in 10 years time. IMPRESSION: Normal (Values between +1 and -1 indicate normal bone mass). Consider repeating this study in 5 year s or sooner if there is some new clinical indication. NOTE: T-SCORE=SD OF THE YOUNG ADULT MEAN. [facility], , 03/07/2025 3:24 PM
== END | disposition home or self-care (01) ==
LOC: RADBDWWP 10:46
PROVIDERS: ATTEND Family Medicine
DX: Z13.820 Encounter for screening for osteoporosis (principal); Z78.0 Asymptomatic menopausal state
CPT/HCPCS: 77080